=== PATIENT | female | born 1980 | race Caucasian/White ===

== ENCOUNTER 2019-10-11 06:00 | Day surgery (SDC) | payer BC, SELFPAY ==
[~2019-10-11] VITALS: Ht 166.4 cm; Wt 53.1 kg
[2019-10-11 08:09] LABS: HCG,QUAL RESULT NEGATIVE (NEGATIVE)
[2019-10-11] MEDS ORDERED: HYDROmorphone 1 MG INJ. 1 MG/ML AMPUL IVP PRN ×2 (08:30)
[2019-10-11] MEDS ORDERED: MIDAZOLAM HCL 2 MG/2 ML VIAL (VERSED) IVP PRN (08:30)
[2019-10-11] MEDS ORDERED: METOCLOPRAMIDE HCL 10 MG/2 ML VIAL IVP PRN (08:30)
[2019-10-11] MEDS ORDERED: ONDANSETRON HCL 4 MG/2 ML VIAL IVP PRN (08:30)
[2019-10-11] MEDS ORDERED: MEPERIDINE HCL/PF 25 MG/ML DISP.SYRIN IVP PRN (08:30)
[2019-10-11] MEDS ORDERED: LR 1,000 ML IV SCH (08:30)
[2019-10-11] MEDS ORDERED: NS 500 ML IV.SOLN IV ONE (10:10)
[2019-10-11] MEDS ORDERED: ONDANSETRON HCL 4 MG/2 ML VIAL ONE (10:10)
[2019-10-11] MEDS ORDERED: fentaNYL CITRATE 250 MCG/5 ML AMP ONE (10:10)
[2019-10-11] MEDS ORDERED: LR 1,000 ML IV.SOLN IV ONE (10:10)
[2019-10-11] MEDS ORDERED: DESFLURANE 15 MIN GAS INH ONE (10:10)
[2019-10-11] MEDS ORDERED: MIDAZOLAM HCL 5 MG/ML VIAL (VERSED) IV ONE (10:10)
[2019-10-11] MEDS ORDERED: ROCURONIUM BROMIDE 10 MG/ML (ZEMURON) ONE (10:10)
[2019-10-11] MEDS ORDERED: EPINEPHrine 1 MG/ML AMP ONE (10:10)
[2019-10-11] MEDS ORDERED: LIDOCAINE/EPI 1% 1:100000 20 ML VIAL INJ ONE (10:10)
[2019-10-11] MEDS ORDERED: DEXAMETHASONE SOD PHOSPHATE 4 MG/ML VIAL ONE (10:10)
[2019-10-11] MEDS ORDERED: MUPIROCIN 2% TOPICAL OINTMENT 22 GM ONE (10:10)
[2019-10-11] MEDS ORDERED: SUGAMMADEX SODIUM 200 MG/2 ML VIAL IV ONE (10:10)
[2019-10-11] MEDS ORDERED: PROPOFOL 200MG/ 20ML VIAL (DIPRIVAN) IV ONE (10:10)
[2019-10-11] MEDS ORDERED: NS IRRIG SOLN 1000 ML IR ONE (10:10)
[2019-10-11] MEDS ORDERED: LIDOCAINE JELLY 5 ML TUBE ONE (10:10)
[2019-10-11] MEDS ORDERED: OXYMETAZOLINE HCL 0.05% NASAL SPRAY NS ONE (10:10)
[2019-10-11 11:17] VITALS: BP_SYST 120
[2019-10-11] MEDS ORDERED: ACETAMINOPHEN 325 MG TABLET PO ONE ×2 (12:45)
[2019-10-11] MEDS ORDERED: ACETAMINOPHEN 325 MG TABLET ONE (13:01)
== END 2019-10-11 13:25 | disposition home or self-care (01) ==
LOC: SMU 06:00 → SDS 06:00
PROVIDERS: ATTEND Otolaryngology
DX: J34.89 Other specified disorders of nose and nasal sinuses (principal); D38.5 Neoplasm of uncertain behavior of other respiratory organs; J34.2 Deviated nasal septum; J32.9 Chronic sinusitis, unspecified; J30.1 Allergic rhinitis due to pollen; H61.23 Impacted cerumen, bilateral; Z88.0 Allergy status to penicillin; Z88.5 Allergy status to narcotic agent; Z11.59 Encounter for screening for other viral diseases
CPT/HCPCS: 30140; 30520; 31255; 31256; 31296; 36415; 84703 ×2; 88304; 88305; 88311; C1726; U0003; C9399; J0171; J1100; J2250; J2405; J2704; J3010; J7040; J7120

== ENCOUNTER 2019-11-07 16:46 | Outpatient (CLI) | payer BC, SELFPAY | END 2019-11-07 20:55 | disposition home or self-care (01) | LOC: SLB 16:46 | PROVIDERS: ATTEND Otolaryngology | DX: Z03.818 Encounter for observation for suspected exposure to other biological agents ruled out (principal) | CPT/HCPCS: C9803; U0003 ==

== ENCOUNTER 2020-01-20 14:30 | Outpatient (CLI) | payer BC, SELFPAY | END 2020-01-20 20:52 | disposition home or self-care (01) | LOC: SLB 14:30 | PROVIDERS: ATTEND Otolaryngology | DX: Z20.828 Contact with and (suspected) exposure to other viral communicable diseases (principal) | CPT/HCPCS: C9803; U0003 ==